=== PATIENT | female | born 1990 | race African-American/Black ===

== ENCOUNTER 2018-10-01 12:08 | Emergency (ER) | payer BC ==
[2018-10-01 12:13] VITALS: BP 132/73; PULSE 92; TEMP 98.3; BMI 21.4
--- NOTE | 2018-10-01 12:53 | PDOC ---
History of Present Illness - General Chief Complaint: Cold Symptoms Stated Complaint: COUGH/SORE THROAT Time Seen by Provider: 10/01/18 12:31 History Source: Patient Exam Limitations: No Limitations Past History - Past Medical History Allergies/Adverse Reactions: Allergies Allergy/AdvReac Type Severity Reaction Status Date / Time No Known Allergies Allergy Verified 10/01/18 12:11 Home Medications: Ambulatory Orders NK [No Known Home Medication] 10/01/18 COPD: No - Immunization History Immunization Up to Date: Yes - Suicide/Smoking/Psychosocial Hx Smoking History: Never smoked Hx Alcohol Use: No Drug/Substance Use Hx: No *Physical Exam - Vital Signs Last Vital Signs Temp Pulse Resp BP Pulse Ox 98.3 F 92 H 18 132/73 99 10/01/18 12:11 10/01/18 12:11 10/01/18 12:11 10/01/18 12:11 10/01/18 12:11 - Physical Exam General Appearance: No: Apparent Distress HEENT: positive: Normal ENT Inspection, Normal Voice. negative: Muffled/Hoarse voice, Pharyngeal Erythema, Tonsillar Exudate, Nasal Congestion, Rhinorrhea, Sinus Tenderness Neck: positive: Supple. negative: Lymphadenopathy (R), Lymphadenopathy (L) Respiratory/Chest: positive: Lungs Clear, Normal Breath Sounds. negative: Respiratory Distress Neurologic: positive: Alert, Normal Mood/Affect Medical Decision Making - Medical Decision Making 27 y/o F presents with throat discomfort radiating to B/L ears x 3 days. Was seen at [facility] yesterday where a rapid strep was done and it was negative; patient was prescribed Cepacol, which she has not yet picked up. Also c/o dry cough. Denies fever, congestion, rhinorrhea, sob, cp, abd pain, n/v/d PE unremarkable; no concern for strep Patient reassured stable for dc 10/01/18 12:50 *DC/Admit/Observation/Transfer Diagnosis at time of Disposition: Throat pain - Discharge Dispostion Disposition: HOME Condition at time of disposition: Stable Decision to Admit order: No - Referrals - Patient Instructions Printed Discharge Instructions: DI for Viral Pharyngitis Additional Instructions: Thank you for choosing [facility]. It was a pleasure taking care of you. Try using the Cepacol lozenges prescribed to see if it helps Also can try salt water gargles Follow-up with your doctor in 2 days Return to the Emergency Department if your symptoms worsen or persist or have other concerning symptoms. - Post Discharge Activity
== END 2018-10-01 12:55 | disposition home or self-care (01) ==
LOC: JERFT 12:08
DX: J02.9 Acute pharyngitis, unspecified (principal); B97.89 Other viral agents as the cause of diseases classified elsewhere
CPT/HCPCS: 99281-25